=== PATIENT | female | born 1965 | race Caucasian/White ===

== ENCOUNTER 2016-09-25 05:25 | Day surgery (SDC) | payer OTHER ==
[2016-09-22 12:20] VITALS: BMI 32.2
[~2016-09-25] VITALS: Ht 162.6 cm; Wt 81.1 kg
[2016-09-25] VITALS (11 sets, daily range): BP systolic 113–160; BP diastolic 59–90; PULSE 10–62; RESP 9–20; Ht 162.6 cm; Wt 81.1 kg
[2016-09-25] MEDS ORDERED: SOD CHLORIDE 0.9% 1,000 ML IV ONE (05:30)
[2016-09-25] MEDS ORDERED: CEFAZOLIN 2 GM/50 ML (PMX) 50 ML IVPB ONE (05:30)
[2016-09-25] MEDS ORDERED: BUPIVACAINE 0.25% (MPF) 30 ML INJ ONE (07:15)
[2016-09-25] MEDS ORDERED: LOSA50TA6 PO (07:22)
[2016-09-25] MEDS ORDERED: HYD25 PO (07:22)
[2016-09-25] MEDS ORDERED: OMEP40CA6 PO (07:22)
[2016-09-25] MEDS ORDERED: METO-429 PO (07:22)
[2016-09-25] MEDS ORDERED: MIDAZOLAM 1 MG/ML 2 ML INJ ONE (07:23)
[2016-09-25] MEDS ORDERED: METOPROLOL 5 MG INJ ONE ×2 (07:23→07:33)
[2016-09-25] MEDS ORDERED: METOCLOPRAMIDE 10 MG INJ ONE (07:24)
[2016-09-25] MEDS ORDERED: PROPOFOL 20 ML ONE (07:31)
[2016-09-25] MEDS ORDERED: GLYCOPYRROLATE 0.4 MG INJ ONE (07:31)
[2016-09-25] MEDS ORDERED: ROCURONIUM 50 MG INJ ONE (07:31)
[2016-09-25] MEDS ORDERED: CEFAZOLIN 1 GM INJ ONE (07:31)
[2016-09-25] MEDS ORDERED: NEOSTIGMINE 3 MG/3 ML SYRINGE ONE (07:31)
[2016-09-25] MEDS ORDERED: ROPIVACAINE 0.5 % 30 ML VIAL ONE (07:35)
[2016-09-25] MEDS ORDERED: ONDANSETRON 4 MG INJ ONE (07:53)
[2016-09-25] MEDS ORDERED: KETOROLAC 30 MG INJ ONE (07:53)
[2016-09-25] MEDS ORDERED: METOCLOPRAMIDE 10 MG INJ IV PRN (08:00)
[2016-09-25] MEDS ORDERED: ONDANSETRON 4 MG INJ IV PRN (08:00)
[2016-09-25] MEDS ORDERED: HYDROmorphONE (0.2 MG/ML) 10ML SYG IV PRN ×3 (08:00)
[2016-09-25] MEDS ORDERED: OXYCODONE/ACETAMINOPHEN (5/325) TAB PO PRN ×2 (08:00)
[2016-09-25] MEDS ORDERED: LABETALOL HCL 20MG INJ IV PRN (08:00)
[2016-09-25] MEDS ORDERED: hydrALAzine 20 MG INJ IV PRN (08:00)
[2016-09-25] MEDS ORDERED: MEPERIDINE 25 MG INJ IV PRN (08:00)
[2016-09-25] MEDS ORDERED: DIPHENHYDRAMINE 50 MG INJ IV PRN (08:00)
[2016-09-25] MEDS ORDERED: SIMV10TA6 PO (08:24)
[2016-09-25] MEDS ORDERED: HYDROmorphONE 2 MG/ML SYG ONE (08:24)
[2016-09-25] MEDS ORDERED: ASPI81TA3 PO (08:24)
[2016-09-25] MEDS ORDERED: HYDROCODONE/APAP (5/325) TAB PO ONE (08:30)
--- NOTE | 2016-09-25 11:01 | OPR ---
DATE OF OPERATION: 09/25/2016 INDICATION: This is a 51-year-old female with symptomatic gallstones. She requests surgical excisi on of her gallbladder. Risks, alternatives, benefits, and personnel were discussed with the patient . Patient expressed understanding and consents to the operation. PREOPERATIVE DIAGNOSIS: Symptomatic gallstones. POSTOPERATIVE DIAGNOSIS: Symptomatic gallstones. OPERATION: Laparoscopic cholecystectomy. SURGEON: Sera Brunson MD SPECIMENS: Gallbladder. COMPLICATIONS: None. ANESTHESIA: General. PROCEDURE: The patient was taken to the OR and prepped and draped in the usual sterile fashion. Espinoza rgical timeout was performed. IV antibiotics were given. Infraumbilical transverse incision is mad e with a 15 blade. Dissection cautery was carried down to the fascia which was divided with curved Estrada scissors. An 0 Vicryl U-stitch was placed into the fascia. Balloon Thierno trocar was introduc ed. Pneumoperitoneum was established. Midepigastric 12 mm optical trocar and right upper quadrant and right upper flank 5 mm optical trocars were placed under direct visualization. Upon initial ins pection, there were some adhesions to the gallbladder which were taken down bluntly. The cystic [place] t was identified. The critical view was established. The cystic duct was divided using a 35 mm Ech mihai vascular load stapler. The cystic artery was divided using a 35 mm Epworth vascular load stapl er. Both sites were clipped for reinforcement. Gallbladder was taken off the gallbladder bed. Ther e was good hemostasis. Gallbladder was retrieved using the EndoCatch bag. Ports were removed under direct visualization. The 0 Vicryl U-stitch was tied down. Skin was closed using skin sona. Lo kayla anesthesia was injected. Dry dressings were applied. Dictated By: SERA BRUNSON MD SB/LAINEY Conf#: [id number] DID#: [id number]
== END 2016-09-25 10:32 | disposition home or self-care (01) ==
LOC: SDS 05:25
PROVIDERS: ATTEND Surgery
DX: K80.10 Calculus of gallbladder with chronic cholecystitis without obstruction (principal); I10 Essential (primary) hypertension; E78.5 Hyperlipidemia, unspecified
CPT/HCPCS: 47562; 82962; 88304; J0690; J1170; J1885; J2250; J2405; J2710; J2795; Z7512; Z7610; J2765